=== PATIENT | female | born 1975 | race Hispanic/Latino ===

== ENCOUNTER → 2019-05-11 | Outpatient (CLI) | payer OTHER ==
--- NOTE | 2019-05-14 08:55 | Diagnostic Imaging Report ---
#[id number] - MGDXBIL #BILATERAL FIRST EVER DIGITAL DIAGNOSTIC MAMMOGRAM WITH CAD: 05/11/2019 No prior exams were available for comparison. Current study contains 8 films. The tissue of both breasts is heterogeneously dense. This may lower the sensitivity of mammography. Current study was also evaluated with a Computer Aided Detection (CAD) system. Benign appearing calcifications are noted bilaterally. No significant masses, calcifications, or other findings are seen in either breast. IMPRESSION: BENIGN See the report for ultrasound performed the same day for additional details. There is no mammographic evidence of malignancy. A 1 year screening mammogram is recommended. The patient will be notified by letter of the results. BENITO RAWLS M.D. ct/penrad:05/11/2019 16:18:47 Tent Worker: Priya CHURCH)([place]), [facility] letter sent: Normal Exam Mammogram BI-RADS: 2 Benign
--- NOTE | 2019-05-14 08:55 | Diagnostic Imaging Report ---
#[id number] - USBRELIMRT ULTRASOUND OF THE RIGHT BREAST : 05/11/2019 Comparison is made to exam dated: 05/11/2019 mammogram - [facility]. Real-time ultrasound was performed on the right breast. There is a benign 1.4 cm oval cyst in the right breast at 10 o'clock middle depth. This oval cyst is anechoic with posterior acoustic enhancement. This correlates as palpated. IMPRESSION: BENIGN There is no sonographic evidence of malignancy. The 1.4 cm oval cyst in the right breast is benign. A 1 year screening mammogram is recommended. BENITO RAWLS M.D. ct/penrad:05/11/2019 16:20:33 Section Cutter: [facility], [facility] letter sent: Normal Exam Ultrasound BI-RADS: 2 Benign
== END ==
LOC: MAMMO 09:05
PROVIDERS: ATTEND Obstetrics & Gynecology Obstetrics
DX: N63.10 Unspecified lump in the right breast, unspecified quadrant (principal)
CPT/HCPCS: 77066